=== PATIENT | male | born 1980 ===

== ENCOUNTER 2020-05-23 10:04 | Outpatient (CLI) | payer MEDICAID ==
[~2020-05-23] VITALS: Ht 177.8 cm; Wt 66.2 kg
--- NOTE | 2020-05-23 11:45 | Consultation ---
DATE OF CONSULTATION: 05/23/2020 CHIEF COMPLAINT: GERD. PAST MEDICAL HISTORY: IgA nephropathy, anxiety. PAST SURGICAL HISTORY: transplant x2 for IgA nephropathy. MEDICATIONS: Please see medication reconciliation list. FAMILY HISTORY: No family history of GI malignancies. SOCIAL HISTORY: The patient denies any tobacco usage. Denies any IV drug usage. Drinks socially. ALLERGIES: No known drug allergies. REVIEW OF SYSTEMS: Positive for chronic GERD, lots of mucus secretion. PHYSICAL EXAMINATION: VITAL SIGNS: Temperature 97.9, blood pressure is 112/77, pulse 69, respirations 20. HEENT: Normocephalic and atraumatic. Sclerae anicteric. NECK: Supple. No evidence of obvious lymphadenopathy. CARDIOVASCULAR: Regular rate and rhythm. Plus S1 and S2. LUNGS: Clear to auscultation bilaterally. ABDOMEN: Positive bowel sounds. Soft and nontender. No rebound. No guarding. No peritoneal sign. EXTREMITIES: No cyanosis. No clubbing. No edema. ASSESSMENT AND PLAN: The patient is a 39-year-old male with history of chronic GERD currently on Protonix without any response, needs an endoscopy for evaluation of causes of chronic GERD, not responding to PPI. The patient was informed of the risks and benefits of procedure. We will try to schedule him when authorization is obtained. Jose J Hyman M.D. DR: Lorenza JOB#: [id number] CC:
[2020-05-23 14:22] VITALS: BP 112/77
[2020-05-30] MEDS ORDERED: PROTONIX40 MG ORAL (14:27)
[2020-05-30] MEDS ORDERED: PROGRAF1 MG ORAL (14:27)
[2020-05-30] MEDS ORDERED: MYCOPHENOLATE500 MG PO (14:27)
[2020-05-30] MEDS ORDERED: PREDNISONE2.5 MG ORAL (14:27)
== END 2020-05-23 12:04 | disposition home or self-care (01) ==
LOC: PAN 10:04
DX: K21.9 Gastro-esophageal reflux disease without esophagitis (principal); Z79.899 Other long term (current) drug therapy
CPT/HCPCS: G0463

== ENCOUNTER 2020-07-11 14:05 | Outpatient (CLI) | payer MEDICAID ==
[~2020-07-11 14:05] MED LIST: MYCOPHENOLATE500 MG PO; PREDNISONE2.5 MG ORAL; PROGRAF1 MG ORAL; PROTONIX40 MG ORAL
== END 2020-07-11 16:05 | disposition home or self-care (01) ==
LOC: PAN 14:05
DX: K21.9 Gastro-esophageal reflux disease without esophagitis (principal)
CPT/HCPCS: 99212